=== PATIENT | female | born 1990 | race Caucasian/White ===

== ENCOUNTER 2019-05-06 17:28 | Emergency (ER) | payer OTHER ==
[~2019-05-06] VITALS: Ht 175.3 cm; Wt 77.1 kg
[~2019-05-06 17:28] MED LIST: CEFDINIR OR; IBUPROFEN 600600 M1 OR; LAMICTAL XR100 MG; NORCO 5-325 TA1 EACH OR; PRENATAL; SEROQUEL 100 M100 MG; ZPAK
[2019-05-06 19:14] LABS: URINE BILIRUBIN NEGATIVE (Negative); URINE BLOOD NEGATIVE (Negative); URINE CLARITY CLEAR; URINE COLOR YELLOW; URINE GLUCOSE-RANDOM* NEGATIVE (Negative); URINE KETONES 1+ (Negative); URINE LEUKOCYTES-REFLEX NEGATIVE (Negative); URINE NITRITE-REFLEX NEGATIVE (Negative); URINE PROTEIN (DIPSTICK) NEGATIVE (Negative); URINE UROBILINOGEN 0.2 E.U./dl (0.2-1.0)
[2019-05-06] MEDS ORDERED: VENTOLIN HFA 1818 GM INH (19:46)
[2019-05-06] MEDS ORDERED: PREDNISONE 20 M20 MG PO (19:46)
[2019-05-06 20:05] VITALS: BP 122/75
--- NOTE | 2019-05-07 17:30 | EKG ---
[address] [address] ELECTROCARDIOGRAM REPORT Name: ALBERT LOOMIS Room #: DEP [facility]#: [id number] Admission: 05/06/19 Attend Phys: Discharge: 05/06/19 Date of : 89 Report #: [id number] THIS REPORT FOR: //name// [facility] ED Test Date: 2019-05-06 Test Time: 17:43:49 Pat Name: ALBERT LOOMIS Department: Room: Gender: F Medical Attendant: YUMIKO : 1990 Requested By: Tate Newton Order Number: [id number] MD: Anatoly Pretty Measurements Intervals [place] Rate: 93 P: 67 NE: 163 QRS: 51 QRSD: 97 T: 14 QT: 366 QTc: 456 Interpretive Statements Sinus rhythm Normal tracing No previous ECG available for comparison Electronically Signed On 05-07-2019 17:30:23 CDT by Anatoly Pretty [email or web address] <ELECTRONICALLY SIGNED> By: Anatoly Pretty MD, [facility] 05/07/19 1730 1743 1743 Anatoly Pretty MD, FACC /EPI
== END 2019-05-06 20:06 | disposition home or self-care (01) ==
LOC: ER 17:28
PROVIDERS: Emergency Medicine
DX: J45.901 Unspecified asthma with (acute) exacerbation (principal); F17.210 Nicotine dependence, cigarettes, uncomplicated